=== PATIENT | female | born 1965 | race Caucasian/White ===

== ENCOUNTER → 2018-02-21 | Outpatient (REF) | payer OTHER ==
[2018-02-21 13:28] LABS: BASO % 0.3 % (0.0-1.0); EOS % 0.7 % (0.0-3.0); HEMOGLOBIN 14.1 g/dl (12.0-15.5); IMMATURE GRANULOCYTE % 0.2 % (0-3.0); LYMPH # 1.4 10^3/uL (1.5-4.5); LYMPH % 23.6 % (24.0-44.0); MEAN CORPUSCULAR HEMOGLOBIN 29.3 pg (27.0-33.0); MEAN CORPUSCULAR VOLUME 91.3 fl (80.0-96.0); MONO # 0.4 10^3/uL (0.0-0.8); MONO % 6.5 % (0.0-5.0); NEUTROPHILS % 68.7 % (36.0-66.0); PLATELET COUNT, AUTOMATED 306 10^3/uL (150-450); RED BLOOD COUNT 4.82 10^6/uL (4.00-5.40); RED CELL DISTRIBUTION WIDTH 12.8 % (11.5-14.5); WHITE BLOOD COUNT 5.8 10^3/uL (4.0-10.0)
[2018-02-21 13:41] LABS: FREE T4 1.09 NG/DL (0.76-1.46)
[2018-02-21 14:35] LABS: FOLLICLE STIMULATING HORMONE 113.6 mIU/mL
== END ==
LOC: M LABDRAW1 12:34
DX: N92.6 Irregular menstruation, unspecified (principal)

== ENCOUNTER → 2019-11-03 | Outpatient (REF) | payer OTHER ==
[2019-11-03 13:09] LABS: BASO % 0.5 % (0.0-1.0); EOS % 0.7 % (0.0-3.0); HEMATOCRIT 45.3 % (36.0-47.0); HEMOGLOBIN 14.1 g/dl (12.0-15.5); LYMPH # 1.3 10^3/uL (1.5-5.0); LYMPH % 22.6 % (24.0-44.0); MEAN CORPUSCULAR HGB CONC 31.1 g/dl (32.0-36.5); MONO # 0.3 10^3/uL (0.0-0.8); MONO % 5.7 % (0.0-5.0); NEUTROPHILS # 3.9 10^3/uL (1.5-8.5); NEUTROPHILS % 70.3 % (36.0-66.0); PLATELET COUNT, AUTOMATED 312 10^3/uL (150-450); RED BLOOD COUNT 4.87 10^6/uL (4.00-5.40); WHITE BLOOD COUNT 5.6 10^3/uL (4.0-10.0)
[2019-11-03 13:22] LABS: ALBUMIN 3.7 GM/DL (3.2-5.2); ALT/SGPT 23 U/L (12-78); BILIRUBIN,TOTAL 0.3 MG/DL (0.2-1.0); BLOOD UREA NITROGEN 14 MG/DL (7-18); CALCIUM LEVEL 8.8 MG/DL (8.5-10.1); CARBON DIOXIDE LEVEL 31 MEQ/L (21-32); CHLORIDE LEVEL 109 MEQ/L (98-107); CHOLESTEROL LEVEL 240 MG/DL (<200); CHOLESTEROL RISK RATIO 2.758 (<5); CREATININE FOR GFR 0.72 MG/DL (0.55-1.30); FREE T4 0.95 NG/DL (0.76-1.46); GLOMERULAR FILTRATION RATE > 60.0 (>51); GLUCOSE, FASTING 91 MG/DL (70-100); HDL CHOLESTEROL 87 MG/DL (>40); LDL CHOLESTEROL 133 MG/DL (<100); NON-HDL-C 153 MG/DL; POTASSIUM SERUM 4.2 MEQ/L (3.5-5.1); SODIUM LEVEL 142 MEQ/L (136-145); TOTAL PROTEIN 6.8 GM/DL (6.4-8.2); TRIGLYCERIDES LEVEL 98 MG/DL (<150)
== END ==
LOC: M LABDRAW1 12:03
PROVIDERS: ATTEND Physician Assistant Medical
DX: E78.2 Mixed hyperlipidemia (principal); E55.9 Vitamin D deficiency, unspecified; Z83.49 Family history of other endocrine, nutritional and metabolic diseases

== ENCOUNTER → 2019-11-05 | Outpatient (REF) | payer OTHER | LOC: M SFHCWAGY 19:15 | PROVIDERS: ATTEND Obstetrics & Gynecology | DX: Z12.4 Encounter for screening for malignant neoplasm of cervix (principal) ==

== ENCOUNTER → 2019-11-12 | Outpatient (CLI) | payer OTHER ==
--- NOTE | 2019-11-12 10:46 | REP ---
[facility] pelvic ultrasound for dysfunctional uterine bleeding: The studies performed transabdominal, endovaginal and Doppler assessment: The bladder is suboptimally distended. The uterus is anteverted and normal size measuring 8.5 x 4.2 x 5.3 cm. The myometrium is unremarkable. The endometrium is not thickened measuring 7.6 ml. However, in the mid endometrial canal there is a 9 x 5 x 9 mm polyp/nodule. There is vascular flow within this nodule. Right ovary: Right ovary measures 1.8 x 1.1 by 1.1 cm. There is no dominant mass or cyst. With color Doppler assessment there is vascular flow in the right ovary. Left ovary: The left ovary measures 2.0 1.3 x 1.3 cm and is normal size. There is no dominant mass or cyst. With color Doppler assessment there is vascular flow. Impression: There is an endometrial polyp/nodule measuring 9 x 5 x 9 mm. Electronically Signed by Constantin Tucker MD 11/12/2019 10:37 A
== END ==
LOC: M WHC 08:25
PROVIDERS: ATTEND Obstetrics & Gynecology
DX: N93.8 Other specified abnormal uterine and vaginal bleeding (principal)

== ENCOUNTER → 2020-02-25 | Outpatient (REF) | payer OTHER | LOC: M WUC 13:44 | PROVIDERS: ATTEND Physician Assistant | DX: Z20.828 Contact with and (suspected) exposure to other viral communicable diseases (principal) ==

== ENCOUNTER → 2020-10-14 | Outpatient (REF) | payer OTHER | LOC: M LAB REF 17:17 | PROVIDERS: ATTEND Physician Assistant Medical | DX: R39.14 Feeling of incomplete bladder emptying (principal) ==

== ENCOUNTER → 2020-10-27 | Outpatient (CLI) | payer OTHER ==
--- NOTE | 2020-10-27 10:59 | REP ---
INDICATION: INCOMPLETE BLADDER EMPTYING COMPARISON: None TECHNIQUE: Real time B-mode ultrasound examination using curved array transducer. FINDINGS: Bladder is normal in appearance without wall thickening or mass lesion. A right ureteral jet was identified. No left ureteral jet noted during exam. A large complex left adnexal lesion measures 9.0 x 7.2 x 11.1 cm. Prevoid bladder measures 14.3 x 11.3 x 4.5 cm (475 cc) Postvoid bladder measures 12.2 x 10.9 x 4.6 cm (399 cc) Postvoid residual: 84% IMPRESSION: 1. Significant postvoid residual volume warrants further investigation. No obvious visible bladder lesion or abnormality identified. 2. Large complex left adnexal lesion represents a relatively new finding when compared to pelvic ultrasound dated 11/12/2019 further investigation is recommended. <Electronically signed by Nathan Winkler > 10/27/20 [id number]
== END ==
LOC: M RAD 10:18
PROVIDERS: ATTEND Physician Assistant Medical
DX: N39.8 Other specified disorders of urinary system (principal); R39.14 Feeling of incomplete bladder emptying

== ENCOUNTER → 2020-11-17 | Outpatient (CLI) | payer OTHER ==
[~2020-11-17] MED LIST: PROHANCE 279.3MG/ML 15ML VIAL As Ordered ONE; PROHANCE 279.3MG/ML 5ML VIAL As Ordered ONE
--- NOTE | 2020-11-17 10:50 | REP ---
INDICATION: ABN RADLGC FIND ON DX IMAGING RENAL PELVIS, URETER, OR BLADDER. COMPARISON: None. TECHNIQUE: Multiple sequences obtained in the axial coronal planes prior to and following the intravenous administration of 17 mL ProHance. FINDINGS: Superior aspect of the liver and spleen are not imaged. The visualized portions of the liver and spleen are unremarkable with no intrinsic abnormality. The left adrenal gland is normal. Right adrenal gland demonstrates a nodule measuring approximately 2.3 cm in diameter. There is a significant drop in signal on the out of phase images, consistent with a benign adenoma. The pancreas demonstrates no mass. Gallbladder and biliary system is unremarkable. The kidneys demonstrate no hydronephrosis or mass. I see no adenopathy or free fluid in the abdomen. IMPRESSION: The very superior aspect of the liver and spleen are not imaged. There is a right adrenal adenoma. The MRI of the abdomen is otherwise unremarkable. <Electronically signed by Constantin Webster > 11/17/20 [id number]
--- NOTE | 2020-11-17 11:23 | REP ---
INDICATION: ABN RADLGC FIND ON DX IMAGING RENAL PELVIS, URETER, OR BLADDER. COMPARISON: Bladder ultrasound 10/27/2020. TECHNIQUE: Multiple sequences obtained in the axial, coronal and sagittal planes prior to and following the intravenous administration of 17 mL ProHance. FINDINGS: A large complex cystic and solid mass seen in the pelvis. It measures approximately 13.0 x 8.4 x 10.6 cm. I suspected that it arises from the right ovary along the right side of the uterus. There is extensive suspicious internal nodular soft tissue enhancement within the mass. Thickened septations are seen in the inferior aspect of the mass and there are areas of wall thickening.. There appears to be a normal size left ovary with follicles along the anterior superior aspect of the mass. The mass displaces the uterus anteriorly and to the right. The uterus is enlarged with a length of approximately 13.8 cm. Subcentimeter nabothian cyst is seen in the region of the cervix. The endometrium is significantly thickened and is heterogeneous, AP diameter is 2.7 cm. Underlying endometrial pathology is not excluded. The junctional zone appears intact. No other mass or adenopathy is seen in the pelvis. The urinary bladder is very mildly distended. No free fluid is seen. The visualized osseous structures demonstrate no abnormal marrow signal. IMPRESSION: Findings compatible with ovarian neoplasm. A large cystic and solid mass seen in the pelvis as discussed above. It is felt to arise from the right ovary. The left ovary appears to lie along the anterior superior aspect of the mass. The uterus is deviated to the right. The endometrium is significantly thickened and is heterogeneous in signal. Underlying endometrial pathology cannot be excluded. <Electronically signed by Constantin Webster > 11/17/20 [id number]
== END ==
LOC: M RAD 08:06
PROVIDERS: ATTEND Physician Assistant Medical
DX: R19.00 Intra-abdominal and pelvic swelling, mass and lump, unspecified site (principal); N88.8 Other specified noninflammatory disorders of cervix uteri; R39.14 Feeling of incomplete bladder emptying
CPT/HCPCS: 72197; 74183; A9576

== ENCOUNTER → 2020-11-24 | Outpatient (REF) | payer OTHER | LOC: M LAB REF 16:39 | PROVIDERS: ATTEND Physician Assistant Medical | DX: R39.14 Feeling of incomplete bladder emptying (principal) ==

== ENCOUNTER → 2020-11-24 | Outpatient (CLI) | payer OTHER ==
--- NOTE | 2020-11-24 12:11 | REP ---
INDICATION: LEFT LEG SWELLING AND PAIN COMPARISON: None. TECHNIQUE: Real time compression and duplex Doppler interrogation of the left lower extremity deep venous system is performed. FINDINGS: The left common femoral, superficial femoral and popliteal veins are fully compressible with transducer pressure and demonstrate normal spontaneous and phasic flow, without evidence of deep venous thrombosis. IMPRESSION: No evidence of deep venous thrombosis of the left lower extremity femoral popliteal venous system. <Electronically signed by Constantin Webster > 11/24/20 [id number]
== END ==
LOC: M RAD 11:47
PROVIDERS: ATTEND Physician Assistant Medical
DX: R60.0 Localized edema (principal)

== ENCOUNTER → 2020-11-25 | Outpatient (CLI) | payer OTHER ==
[2020-11-25 10:34] LABS: ALBUMIN 3.7 GM/DL (3.2-5.2); ALT/SGPT 21 U/L (12-78); BILIRUBIN,TOTAL 0.3 MG/DL (0.2-1.0); BLOOD UREA NITROGEN 9 MG/DL (7-18); CALCIUM LEVEL 9.8 MG/DL (8.5-10.1); CARBON DIOXIDE LEVEL 28 MEQ/L (21-32); CHLORIDE LEVEL 106 MEQ/L (98-107); CHOLESTEROL LEVEL 226 MG/DL (<200); CREATININE FOR GFR 0.65 MG/DL (0.55-1.30); GLOMERULAR FILTRATION RATE > 60.0 (>51); GLUCOSE, FASTING 84 MG/DL (70-100); HDL CHOLESTEROL 81 MG/DL (>40); LDL CHOLESTEROL 130 MG/DL (<100); NON-HDL-C 145 MG/DL; POTASSIUM SERUM 4.7 MEQ/L (3.5-5.1); SODIUM LEVEL 139 MEQ/L (136-145); TOTAL PROTEIN 7.2 GM/DL (6.4-8.2); TRIGLYCERIDES LEVEL 77 MG/DL (<150)
== END ==
LOC: M LAB 08:57
PROVIDERS: ATTEND Physician Assistant Medical
DX: E78.2 Mixed hyperlipidemia (principal)

== ENCOUNTER → 2020-12-09 | Outpatient (CLI) | payer OTHER ==
[2020-12-09 19:33] LABS: CA 125 2506.7 U/ML (<30.2)
== END ==
LOC: M LAB 16:38
PROVIDERS: ATTEND Obstetrics & Gynecology
DX: R19.03 Right lower quadrant abdominal swelling, mass and lump (principal); R93.89 Abnormal findings on diagnostic imaging of other specified body structures

== ENCOUNTER → 2020-12-20 | Outpatient (CLI) | payer OTHER ==
--- NOTE | 2020-12-20 16:25 | REP ---
INDICATION: LT LEG SWELLING. COMPARISON: 11/24/2020. TECHNIQUE: Duplex ultrasound of the left lower extremity deep veins. FINDINGS: There is occlusive thrombus in the popliteal vein. This is a change from the comparison study. IMPRESSION: Popliteal vein occlusive thrombus as an interval change. <Electronically signed by Constantin Tucker > 12/20/20 [id number]
== END ==
LOC: M RAD 15:47
PROVIDERS: ATTEND Physician Assistant Medical
DX: R22.42 Localized swelling, mass and lump, left lower limb (principal)

== ENCOUNTER → 2020-12-27 | Outpatient (CLI) | payer OTHER ==
[2020-12-27 16:42] LABS: BASO % 0.3 % (0.0-1.0); EOS # 0.1 10^3/uL (0.0-0.5); EOS % 1.1 % (0.0-3.0); HEMATOCRIT 39.7 % (36.0-47.0); HEMOGLOBIN 12.7 g/dl (12.0-15.5); LYMPH # 1.9 10^3/uL (1.5-5.0); LYMPH % 18.4 % (24.0-44.0); MEAN CORPUSCULAR HEMOGLOBIN 29.1 pg (27.0-33.0); MEAN CORPUSCULAR VOLUME 90.8 fl (80.0-96.0); MONO # 0.8 10^3/uL (0.0-0.8); MONO % 7.4 % (2.0-8.0); NEUTROPHILS # 7.4 10^3/uL (1.5-8.5); NEUTROPHILS % 72.4 % (36.0-66.0); PLATELET COUNT, AUTOMATED 401 10^3/uL (150-450); RED BLOOD COUNT 4.37 10^6/uL (4.00-5.40); WHITE BLOOD COUNT 10.2 10^3/uL (4.0-10.0)
== END ==
LOC: M LAB 15:43
PROVIDERS: ATTEND Nurse Practitioner Family
DX: N92.0 Excessive and frequent menstruation with regular cycle (principal); R53.83 Other fatigue; R19.09 Other intra-abdominal and pelvic swelling, mass and lump

== ENCOUNTER → 2021-03-02 | Outpatient (CLI) | payer OTHER ==
[2021-03-02 13:36] LABS: BASO % 0.6 % (0.0-1.0); EOS # 0.1 10^3/uL (0.0-0.5); EOS % 1.1 % (0.0-3.0); HEMATOCRIT 43.3 % (36.0-47.0); HEMOGLOBIN 13.1 g/dl (12.0-15.5); LYMPH # 1.6 10^3/uL (1.5-5.0); LYMPH % 25.8 % (24.0-44.0); MEAN CORPUSCULAR HEMOGLOBIN 26.8 pg (27.0-33.0); MEAN CORPUSCULAR HGB CONC 30.3 g/dl (32.0-36.5); MEAN CORPUSCULAR VOLUME 88.5 fl (80.0-96.0); MONO # 0.5 10^3/uL (0.0-0.8); MONO % 7.7 % (2.0-8.0); NEUTROPHILS # 4.1 10^3/uL (1.5-8.5); NEUTROPHILS % 64.6 % (36.0-66.0); PLATELET COUNT, AUTOMATED 371 10^3/uL (150-450); RED BLOOD COUNT 4.89 10^6/uL (4.00-5.40); WHITE BLOOD COUNT 6.3 10^3/uL (4.0-10.0)
[2021-03-02 14:15] LABS: PERCENT SATURATION 14.3 % (13.2-45.0); THYROID STIMULATING HORMONE 2.48 uIU/ML (0.358-3.740); TOTAL 25(OH) VITAMIN D 57.4 NG/ML (30.0-100.0)
== END ==
LOC: M WUC 09:44
PROVIDERS: ATTEND Family Medicine
DX: D50.9 Iron deficiency anemia, unspecified (principal); I82.402 Acute embolism and thrombosis of unspecified deep veins of left lower extremity; E55.9 Vitamin D deficiency, unspecified; R53.83 Other fatigue

== ENCOUNTER → 2021-05-05 | Outpatient (CLI) | payer OTHER | LOC: M WUC 15:29 | PROVIDERS: ATTEND Obstetrics & Gynecology | DX: R19.03 Right lower quadrant abdominal swelling, mass and lump (principal); R97.8 Other abnormal tumor markers; C56.1 Malignant neoplasm of right ovary; C54.1 Malignant neoplasm of endometrium ==

== ENCOUNTER → 2021-05-18 | Outpatient (REF) | payer OTHER | LOC: M SFHCWAGY 18:52 | PROVIDERS: ATTEND Obstetrics & Gynecology | DX: Z12.4 Encounter for screening for malignant neoplasm of cervix (principal) ==

== ENCOUNTER → 2021-08-23 | Outpatient (CLI) | payer OTHER ==
[2021-08-23 17:11] LABS: BASO # 0.1 10^3/uL (0.0-0.2); BASO % 0.7 % (0.0-1.0); EOS # 0.1 10^3/uL (0.0-0.5); EOS % 1.8 % (0.0-3.0); HEMATOCRIT 44.2 % (36.0-47.0); HEMOGLOBIN 14.1 g/dl (12.0-15.5); LYMPH # 2.4 10^3/uL (1.5-5.0); LYMPH % 32.8 % (24.0-44.0); MEAN CORPUSCULAR HEMOGLOBIN 29.1 pg (27.0-33.0); MEAN CORPUSCULAR HGB CONC 31.9 g/dl (32.0-36.5); MEAN CORPUSCULAR VOLUME 91.3 fl (80.0-96.0); MONO # 0.6 10^3/uL (0.0-0.8); MONO % 8.2 % (2.0-8.0); NEUTROPHILS # 4.2 10^3/uL (1.5-8.5); NEUTROPHILS % 56.2 % (36.0-66.0); PLATELET COUNT, AUTOMATED 403 10^3/uL (150-450); RED BLOOD COUNT 4.84 10^6/uL (4.00-5.40); WHITE BLOOD COUNT 7.4 10^3/uL (4.0-10.0)
[2021-08-23 17:47] LABS: ALT/SGPT 21 U/L (12-78); BILIRUBIN,TOTAL 0.3 MG/DL (0.2-1.0); BLOOD UREA NITROGEN 8 MG/DL (7-18); CALCIUM LEVEL 9.7 MG/DL (8.5-10.1); CARBON DIOXIDE LEVEL 30 MEQ/L (21-32); CHLORIDE LEVEL 104 MEQ/L (98-107); CREATININE FOR GFR 0.71 MG/DL (0.55-1.30); FERRITIN 15 NG/ML (8-252); GLOMERULAR FILTRATION RATE > 60.0 (>51); GLUCOSE, FASTING 94 MG/DL (70-100); IRON (FE) 68 UG/DL (50-170); PERCENT SATURATION 19.9 % (13.2-45.0); POTASSIUM SERUM 4.8 MEQ/L (3.5-5.1); SODIUM LEVEL 138 MEQ/L (136-145); TOTAL IRON BINDING CAPACITY 341 UG/DL (250-450); TOTAL PROTEIN 7.4 GM/DL (6.4-8.2)
[2021-08-23 17:53] LABS: TOTAL 25(OH) VITAMIN D 46.4 NG/ML (30.0-100.0)
[2021-08-23 18:22] LABS: CA 125 4.9 U/ML (<30.2)
== END ==
LOC: M LAB 16:31
PROVIDERS: ATTEND Family Medicine
DX: D50.9 Iron deficiency anemia, unspecified (principal); E55.9 Vitamin D deficiency, unspecified; E78.2 Mixed hyperlipidemia; C56.1 Malignant neoplasm of right ovary; I82.402 Acute embolism and thrombosis of unspecified deep veins of left lower extremity

== ENCOUNTER → 2021-11-09 | Outpatient (CLI) | payer OTHER ==
[~2021-11-09] MED LIST changes: +D31000TA2 PO; +ELIQ2.5T PO; +ELIQ5TAB PO; +GASTROGRAFIN SOLUTION 30ML (Q9963) As Ordered ONE; +ISOVUE-370 76% 100ML VIAL As Ordered ONE; +MAGN250T7 PO; +OYST1TAB PO; -PROHANCE 279.3MG/ML 15ML VIAL As Ordered ONE; -PROHANCE 279.3MG/ML 5ML VIAL As Ordered ONE; +VITA-198 PO
== END ==
LOC: M RAD 11:28
PROVIDERS: ATTEND Internal Medicine Hematology & Oncology
DX: C54.1 Malignant neoplasm of endometrium (principal); D35.01 Benign neoplasm of right adrenal gland; K57.30 Diverticulosis of large intestine without perforation or abscess without bleeding
CPT/HCPCS: 71260; 74177; Q9963; Q9967

== ENCOUNTER → 2022-03-10 | Outpatient (REF) | payer OTHER ==
[~2022-03-10] MED LIST changes: -D31000TA2 PO; -GASTROGRAFIN SOLUTION 30ML (Q9963) As Ordered ONE; -ISOVUE-370 76% 100ML VIAL As Ordered ONE; +MULTCHW14 PO; +VITA100093 PO
== END ==
LOC: M WUC 13:18
PROVIDERS: ATTEND Obstetrics & Gynecology Gynecologic Oncology
DX: C56.1 Malignant neoplasm of right ovary (principal)

== ENCOUNTER → 2022-04-03 | Outpatient (CLI) | payer OTHER ==
[2022-04-03 11:01] LABS: BASO % 0.7 % (0.0-1.0); EOS # 0.1 10^3/uL (0.0-0.5); EOS % 1.3 % (0.0-3.0); HEMOGLOBIN 14.9 g/dl (12.0-15.5); LYMPH # 1.5 10^3/uL (1.5-5.0); LYMPH % 33.3 % (24.0-44.0); MEAN CORPUSCULAR HEMOGLOBIN 29.3 pg (27.0-33.0); MEAN CORPUSCULAR HGB CONC 32.4 g/dl (32.0-36.5); MEAN CORPUSCULAR VOLUME 90.6 fl (80.0-96.0); MONO # 0.3 10^3/uL (0.0-0.8); MONO % 6.8 % (2.0-8.0); NEUTROPHILS # 2.6 10^3/uL (1.5-8.5); NEUTROPHILS % 57.7 % (36.0-66.0); PLATELET COUNT, AUTOMATED 325 10^3/uL (150-450); RED BLOOD COUNT 5.08 10^6/uL (4.00-5.40); WHITE BLOOD COUNT 4.5 10^3/uL (4.0-10.0)
[2022-04-03 12:12] LABS: ALBUMIN 3.8 GM/DL (3.2-5.2); ALT/SGPT 17 U/L (12-78); BILIRUBIN,TOTAL 0.3 MG/DL (0.2-1.0); BLOOD UREA NITROGEN 8 MG/DL (7-18); CALCIUM LEVEL 9.5 MG/DL (8.5-10.1); CARBON DIOXIDE LEVEL 26 MEQ/L (21-32); CHLORIDE LEVEL 107 MEQ/L (98-107); CHOLESTEROL LEVEL 213 MG/DL (<200); CHOLESTEROL RISK RATIO 2.597 (<5); CREATININE FOR GFR 0.65 MG/DL (0.55-1.30); GLOMERULAR FILTRATION RATE > 60.0 (>51); GLUCOSE, FASTING 82 MG/DL (70-100); HDL CHOLESTEROL 82 MG/DL (>40); LDL CHOLESTEROL 116 MG/DL (<100); NON-HDL-C 131 MG/DL; POTASSIUM SERUM 4.5 MEQ/L (3.5-5.1); SODIUM LEVEL 139 MEQ/L (136-145); TOTAL PROTEIN 7.1 GM/DL (6.4-8.2); TRIGLYCERIDES LEVEL 73 MG/DL (<150)
[2022-04-03 12:23] LABS: TOTAL 25(OH) VITAMIN D 46.9 NG/ML (30.0-100.0)
== END ==
LOC: M WUC 08:02
PROVIDERS: ATTEND Family Medicine
DX: Z00.00 Encounter for general adult medical examination without abnormal findings (principal); E55.9 Vitamin D deficiency, unspecified

== ENCOUNTER → 2022-07-03 | Outpatient (CLI) | payer OTHER | LOC: M RAD 09:12 | PROVIDERS: ATTEND Registered Nurse | DX: M79.662 Pain in left lower leg (principal) ==

== ENCOUNTER → 2022-08-22 | Outpatient (CLI) | payer OTHER | LOC: M WUC 08:28 | PROVIDERS: ATTEND Obstetrics & Gynecology Gynecologic Oncology | DX: Z85.43 Personal history of malignant neoplasm of ovary (principal); Z08 Encounter for follow-up examination after completed treatment for malignant neoplasm ==

== ENCOUNTER → 2022-09-15 | Outpatient (REF) | payer OTHER ==
[2022-09-15 10:28] LABS: CHOLESTEROL RISK RATIO 3.11 (<5); HDL CHOLESTEROL 67.7 MG/DL (>40); LDL CHOLESTEROL 122.7 MG/DL (<100)
[2022-09-15 11:40] LABS: TOTAL 25(OH) VITAMIN D 54.2 NG/ML (20.0-100.0)
== END ==
LOC: M LABWUC 09:34
PROVIDERS: ATTEND Registered Nurse
DX: E78.2 Mixed hyperlipidemia (principal); E55.9 Vitamin D deficiency, unspecified

== ENCOUNTER → 2022-12-15 | Outpatient (CLI) | payer OTHER | LOC: M WUC 10:06 | PROVIDERS: ATTEND Nurse Practitioner | DX: C56.1 Malignant neoplasm of right ovary (principal); C54.1 Malignant neoplasm of endometrium ==

== ENCOUNTER → 2023-05-09 | Outpatient (CLI) | payer OTHER | LOC: M WHC 07:18 | PROVIDERS: ATTEND Registered Nurse | DX: Z12.31 Encounter for screening mammogram for malignant neoplasm of breast (principal) ==

== ENCOUNTER → 2023-07-12 | Outpatient (REF) | payer OTHER | LOC: M WUC 12:09 | PROVIDERS: ATTEND Nurse Practitioner | DX: C56.1 Malignant neoplasm of right ovary (principal); C54.1 Malignant neoplasm of endometrium ==

== ENCOUNTER → 2023-12-21 | Outpatient (REF) | payer OTHER | LOC: M LABWUC 17:27 | PROVIDERS: ATTEND Nurse Practitioner | DX: C54.1 Malignant neoplasm of endometrium (principal); C56.1 Malignant neoplasm of right ovary ==

== ENCOUNTER → 2024-02-21 | Outpatient (CLI) | payer OTHER | LOC: M RAD 09:49 | PROVIDERS: ATTEND Registered Nurse | DX: M79.662 Pain in left lower leg (principal) ==

== ENCOUNTER → 2024-04-17 | Outpatient (REF) | payer OTHER | LOC: M LAB REF 16:54 | PROVIDERS: ATTEND Registered Nurse | DX: Z00.00 Encounter for general adult medical examination without abnormal findings (principal); R35.0 Frequency of micturition ==

== ENCOUNTER → 2024-08-04 | Outpatient (CLI) | payer OTHER | LOC: M WUC 08:41 | PROVIDERS: ATTEND Nurse Practitioner | DX: I82.402 Acute embolism and thrombosis of unspecified deep veins of left lower extremity (principal); C56.1 Malignant neoplasm of right ovary; C54.1 Malignant neoplasm of endometrium ==

== ENCOUNTER → 2024-08-04 | Outpatient (CLI) | payer OTHER ==
[2024-08-04 11:04] LABS: BASO % 0.5 % (0.0-1.0); EOS % 0.6 % (0.0-3.0); HEMATOCRIT 44.6 % (36.0-47.0); HEMOGLOBIN 14.3 g/dl (12.0-15.5); LYMPH # 1.3 10^3/uL (1.5-5.0); MEAN CORPUSCULAR HEMOGLOBIN 29.5 pg (27.0-33.0); MEAN CORPUSCULAR HGB CONC 32.1 g/dl (32.0-36.5); MONO # 0.6 10^3/uL (0.0-0.8); MONO % 8.8 % (2.0-8.0); NEUTROPHILS # 4.4 10^3/uL (1.5-8.5); NEUTROPHILS % 68.8 % (36.0-66.0); PLATELET COUNT, AUTOMATED 301 10^3/uL (150-450); RED BLOOD COUNT 4.85 10^6/uL (4.00-5.40); WHITE BLOOD COUNT 6.3 10^3/uL (4.0-10.0)
[2024-08-04 11:40] LABS: ALBUMIN 3.7 G/DL (3.2-5.2); ALKALINE PHOSPHATASE 84 U/L (35-104); ALT/SGPT 26 U/L (7.0-40); AST/SGOT 19 U/L (<34); BILIRUBIN,TOTAL 0.4 MG/DL (0.3-1.2); BLOOD UREA NITROGEN 10 MG/DL (9-23); CALCIUM LEVEL 9.5 MG/DL (8.5-10.1); CARBON DIOXIDE LEVEL 30 MMOL/L (20-31); CHLORIDE LEVEL 104 MMOL/L (98-107); CHOLESTEROL LEVEL 238 MG/DL (<200); CREATININE FOR GFR 0.67 MG/DL (0.55-1.30); GLOMERULAR FILTRATION RATE > 60.0 (>51); GLUCOSE, FASTING 82 MG/DL (60-100); LDL CHOLESTEROL 135.6 MG/DL (<100); POTASSIUM SERUM 4.7 MMOL/L (3.5-5.1); SODIUM LEVEL 139 MMOL/L (136-145); TOTAL PROTEIN 6.9 G/DL (5.7-8.2); TRIGLYCERIDES LEVEL 102 MG/DL (<150)
== END ==
LOC: M WUC 08:38
PROVIDERS: ATTEND Registered Nurse
DX: Z00.00 Encounter for general adult medical examination without abnormal findings (principal)

== ENCOUNTER → 2025-01-06 | Outpatient (CLI) | payer OTHER | LOC: M RAD 10:20 | PROVIDERS: ATTEND Family Medicine | DX: M79.662 Pain in left lower leg (principal) ==